=== PATIENT | male | born 1945 | race Caucasian/White ===

== ENCOUNTER 2024-04-22 19:59 | Emergency (ER) | payer MEDICARE, OTHER, SELFPAY ==
[2024-04-22 20:01] VITALS: BP 138/72
--- NOTE | 2024-04-22 20:40 | ED.GENMED ---
History of Present Illness
General
Chief Complaint: Skin Problem
Time Seen by Provider: 04/22/24 20:25
History of Present Illness
History of Present Illness:
78-year-old male presents to the emergency department for evaluation of a possible embedded foreign body of the right index finger associated with increasing swelling. Attempted to remove the foreign body yesterday unsuccessfully. Last tetanus
unknown
Past History
Past History
ED Past Medical History: Cancer (non Hodgkin's lymphoma), HTN, Hypercholesterolemia and Other (kidney stone, UTI)
ED Past Surgical History: Cholecystectomy (10/04/2020) and Other (Cervical lymph node dissection, Hernia repair)
Social History
Tobacco: Non-smoker
Alcohol: Occasional
Drug: None
Personal:
Living: with family
Employment: Retired
Family History
Family History: Other (Noncontributory)
Review of Systems
Review of Systems
Allergies reviewed?: Yes
All Other Systems: ROS reviewed and negative except as documented in HPI and ROS
Phy Exam
Physical Exam
Physical Exam:
GEN: Well appearing, NAD, WDWN
HEENT: Oral mucosa moist, no scleral icterus
Cardiac: Regular rate
Lung: No respiratory distress, no tachypnea
MSK: Moderate swelling of the right index finger pad with a visible foreign body embedded
Skin: Good color, no pallor or jaundice, no rashes
Neuro: AO x3, moves all extremities freely
Psych: Calm, cooperative
Course
Orders/Labs/Results
Orders:
Orders
04/22/24 20:40
Cephalexin Monohydrate [Keflex] 500 mg PO NOW STA
Tetanus/Diphth/Acelpertussis [Adacel] 0.5 ml IM .ONCE ONE
Vital Signs
Initial and Last Documented VS:
Initial Vital Signs
Temp Pulse Resp BP Pulse Ox
98.1 F 86 16 138/72 97
04/22/24 20:01 04/22/24 20:01 04/22/24 20:01 04/22/24 20:01 04/22/24 20:01
Last Documented Vital Signs
Temp Pulse Resp BP Pulse Ox
98.1 F 86 16 138/72 97
04/22/24 20:01 04/22/24 20:01 04/22/24 20:01 04/22/24 20:01 04/22/24 20:01
Procedures
Foreign Body Removal-Skin
Wound explored and foreign body removed?: Yes
Anesthesia: local and 1% lidocaine
Foreign body removed using: irrigation and forceps
Foreign body removed: completely
MDM/Problems Addressed
MDM/Problems Addressed:
Foreign body was removed after an incision was made in the inflamed finger, start the patient on antibiotics, tetanus updated
*Critical Care Note
Total Time (30-74mins, 75-104mins- exclusive of procedures): Not Applicable
ED Attending Note
-
Portions of this chart may have been created with voice recognition software.� Occasional wrong word or��sound alike� substitutions may have occurred due to the inherent limitations of voice recognition software.
Discharge Plan
Departure
Patient Disposition: Home (Routine Discharge)
Date of Disposition: 04/22/24
Time of Disposition: 20:47
Patient with high blood pressure during this ER visit?: No
Discharge Problem:
Foreign body in skin of right index finger
Instructions: Foreign Body in Skin (DC)
Prescriptions:
New
cephalexin 500 mg capsule
500 mg PO Q8H 5 Days Qty: 15 0RF
No Action
famotidine 20 MG tablet
20 mg PO HS
metoprolol succinate 25 MG tablet extended release 24 hr
25 mg PO DAILY
fluticasone propionate 1 SPRAY spray,suspension
1 spray intranasal DAILY
rosuvastatin 10 MG tablet
10 mg PO QPM
omeprazole 40 MG capsule,delayed release(DR/EC)
40 mg PO HS
aspirin 81 MG tablet,delayed release (DR/EC)
81 mg PO DAILY
acetaminophen [Tylenol Extra Strength] 500 MG tablet
1,000 mg PO DAILYPRN PRN (Reason: MODERATE PAIN)
magnesium oxide 500 MG tablet
250 mg PO HS
sulfamethoxazole-trimethoprim [Bactrim DS] 800-160 mg Tablet
1 tab PO BID
Interventions
Interventions:
*Risk Screen - Suicide Last Done: 04/22/24 20:56
*Nursing Disposition Last Done: 04/22/24 20:56
ED-Skin Assessment Last Done: 04/22/24 20:36
Discharge Date and Time
Discharge Date/Time: 04/22/24 20:56
Print Language: [place]
[2024-04-22] MEDS: KEFLEX 500 MG PO (20:44)
[2024-04-22] MEDS: ADACEL 0.5 ML IM (20:45)
== END 2024-04-22 20:56 | disposition home or self-care (01) ==
LOC: EMR 19:59
PROVIDERS: EMERGENCY PHYSICIAN Emergency Medicine; FAMILY PHYSICIAN Family Medicine
DX: S60.450A Superficial foreign body of right index finger, initial encounter (principal); X58.XXXA Exposure to other specified factors, initial encounter; I10 Essential (primary) hypertension; E78.00 Pure hypercholesterolemia, unspecified; Z23 Encounter for immunization; Z85.72 Personal history of non-Hodgkin lymphomas
CPT/HCPCS: 10120; 90471; 99282; 90715

== ENCOUNTER → 2024-07-18 09:11 | Outpatient (REF) | payer MEDICARE, OTHER, SELFPAY | LOC: HWRAD 09:11 | PROVIDERS: ATTENDING PHYSICIAN Internal Medicine Cardiovascular Disease; FAMILY PHYSICIAN Family Medicine | DX: I71.21 Aneurysm of the ascending aorta, without rupture (principal) | CPT/HCPCS: 71250 ==

== ENCOUNTER → 2024-08-03 07:49 | Outpatient (REF) | payer MEDICARE, OTHER, SELFPAY | LOC: HWRAD 07:49 | PROVIDERS: ATTENDING PHYSICIAN Otolaryngology; FAMILY PHYSICIAN Family Medicine | DX: J32.0 Chronic maxillary sinusitis (principal); J34.2 Deviated nasal septum | CPT/HCPCS: 70486 ==

== ENCOUNTER → 2024-08-24 12:06 | Outpatient (REF) | payer MEDICARE, OTHER, SELFPAY ==
[2024-08-24 12:19] VITALS: BP 135/71; BP_SYST 75
== END ==
LOC: RADI 12:06
PROVIDERS: ATTENDING PHYSICIAN Internal Medicine Hematology & Oncology; FAMILY PHYSICIAN Family Medicine
DX: Z45.2 Encounter for adjustment and management of vascular access device (principal); C82.58 Diffuse follicle center lymphoma, lymph nodes of multiple sites
CPT/HCPCS: 36590; 77001

== ENCOUNTER → 2024-09-15 12:02 | Outpatient (REF) | payer MEDICARE, OTHER, SELFPAY | LOC: HWRAD 12:02 | PROVIDERS: ATTENDING PHYSICIAN Student in an Organized Health Care Education/Training Program | DX: M54.41 Lumbago with sciatica, right side (principal); M54.42 Lumbago with sciatica, left side | CPT/HCPCS: 72110 ==

== ENCOUNTER 2024-11-03 06:51 | Outpatient (RCR) | payer MEDICARE, OTHER, SELFPAY | END 2024-11-03 23:59 | disposition home or self-care (01) | LOC: RPT 06:51 | PROVIDERS: ATTENDING PHYSICIAN Student in an Organized Health Care Education/Training Program; FAMILY PHYSICIAN Family Medicine | DX: M54.16 Radiculopathy, lumbar region (principal); Z73.6 Limitation of activities due to disability; M62.81 Muscle weakness (generalized); R26.89 Other abnormalities of gait and mobility; M79.604 Pain in right leg | CPT/HCPCS: 97110; 97140; 97162 ==

== ENCOUNTER 2024-11-28 18:58 | Outpatient (RCR) | payer MEDICARE, OTHER, SELFPAY | END 2024-11-28 23:59 | disposition home or self-care (01) | LOC: RPT 18:58 | PROVIDERS: ATTENDING PHYSICIAN Student in an Organized Health Care Education/Training Program; FAMILY PHYSICIAN Family Medicine | DX: M54.16 Radiculopathy, lumbar region (principal); Z73.6 Limitation of activities due to disability; M62.81 Muscle weakness (generalized); R26.89 Other abnormalities of gait and mobility; M79.604 Pain in right leg | CPT/HCPCS: 97110; 97140 ==

== ENCOUNTER 2024-12-12 18:50 | Outpatient (RCR) | payer MEDICARE, OTHER, SELFPAY | END 2024-12-12 23:59 | disposition home or self-care (01) | LOC: RPT 18:50 | PROVIDERS: ATTENDING PHYSICIAN Student in an Organized Health Care Education/Training Program; FAMILY PHYSICIAN Family Medicine | DX: M54.16 Radiculopathy, lumbar region (principal); Z73.6 Limitation of activities due to disability; M62.81 Muscle weakness (generalized); R26.89 Other abnormalities of gait and mobility; M79.604 Pain in right leg | CPT/HCPCS: 97110; 97140 ==